=== PATIENT | female | born 1980 | race African-American/Black ===

== ENCOUNTER 2019-04-03 18:00 | Emergency (ER) | payer OTHER ==
[~2019-04-03] VITALS: Ht 172.7 cm; Wt 137.4 kg
[2019-04-03] MEDS ORDERED: PROAIR HFA8.5 GM INH (18:55)
[2019-04-03 19:40] VITALS: BP 133/76
[2019-04-03] MEDS ORDERED: ZPAK PO (19:53)
[2019-04-03] MEDS ORDERED: PROMETH-CODEIN 65 ML PO (19:53)
== END 2019-04-03 20:00 | disposition home or self-care (01) ==
LOC: ER 18:00
DX: J18.9 Pneumonia, unspecified organism (principal); F17.210 Nicotine dependence, cigarettes, uncomplicated

== ENCOUNTER 2019-05-17 22:29 | Emergency (ER) | payer OTHER ==
[~2019-05-17] VITALS: Ht 175.3 cm; Wt 131.5 kg
[~2019-05-17 22:29] MED LIST: PROAIR HFA8.5 GM INH; PROMETH-CODEIN 65 ML PO; ZPAK PO
[2019-05-17 23:03] VITALS: BP 162/87
[2019-05-18 00:05] LABS: AMP/METHAMP Negative (Negative); BARBITURATES Negative (Negative); BENZODIAZEPINES Negative (Negative); COCAINE Negative (Negative); METHADONE Negative (Negative); OPIATES Negative (Negative); PCP Negative (Negative)
[2019-05-18 00:39] LABS: HEMATOCRIT 32.3 % (37.0-47.0); HEMOGLOBIN 9.2 gm/dL (12.0-15.0); MCHC 28.5 g/dL (28.0-37.0); MCV 63.2 fL (80.0-100.0); PLATELET COUNT 469 thou/uL (150-400); RBC 5.12 mil/uL (4.20-5.00); RDW 21.5 % (10.5-14.5); WBC 7.7 thou/uL (4.0-11.0)
[2019-05-18 00:43] LABS: ANION GAP 6 mmol/L (7-16); BUN 10 mg/dL (7-18); CALCIUM 9.1 mg/dL (8.5-10.1); CHLORIDE 103 mmol/L (98-107); CO2 30 mmol/L (21-32); CREATININE 0.7 mg/dL (0.6-1.0); GLUCOSE 283 mg/dL (74-106); SODIUM 139 mmol/L (136-145)
[2019-05-18 00:53] LABS: ALBUMIN 3.2 g/dL (3.4-5.0); MAGNESIUM 1.5 mg/dL (1.8-2.4); SGOT 10 U/L (15-37); SGPT 20 U/L (30-65); TOTAL BILIRUBIN 0.1 mg/dL (<0.1-1.0); TROPONIN-I <0.06 ng/mL (<0.06)
[2019-05-18 01:57] LABS: ABSOLUTE NEUTROPHILS 4.1 thou/uL (1.4-8.2)
[2019-05-18 01:58] LABS: ANISOCYTOSIS 2+; MICROCYTES 3+; PLATELET ESTIMATE INCREASED; POLYCHROMASIA 1+
[2019-05-18 01:59] LABS: HYPOCHROMASIA 3+; POIKILOCYTOSIS 2+
[2019-05-18] MEDS ORDERED: PREDNISONE 20 M20 MG PO (03:13)
[2019-05-18] MEDS ORDERED: TRAMADOL 50 MG50 MG PO (03:13)
[2019-05-18] MEDS ORDERED: VENTOLIN HFA 1818 GM INH (03:13)
[2019-05-18 07:11] VITALS: BP 153/83
--- NOTE | 2019-05-18 08:40 | EKG ---
[address] [address] ELECTROCARDIOGRAM REPORT Name: EULA GROSS Room #: 170-8 ADM IN M.R.#: [id number] Admission: 05/18/19 Attend Phys: Nitin Mena MD Discharge: Date of : 82 Report #: [id number] THIS REPORT FOR: //name// [facility] ED Test Date: 2019-05-17 Test Time: 22:32:57 Pat Name: EULA GROSS Department: Room: 170 Gender: F Medical Fee Clerk: GELA : 1980 Requested By: Osmin Espinoza Order Number: [id number] MD: Robby Negro Measurements Intervals [place] Rate: 102 P: 51 CA: 162 QRS: -10 QRSD: 89 T: 65 QT: 343 QTc: 447 Interpretive Statements Sinus tachycardia Probable left atrial enlargement No previous ECG available for comparison Electronically Signed On 05-18-2019 8:40:22 HAND BANDER by Robby Negro [email or web address] <ELECTRONICALLY SIGNED> By: Robby Negro MD 05/18/19 0840 [id number] Robby Negro MD /SAE
--- NOTE | 2019-05-18 10:38 | EXE ---
[facility] [address] [address] [place] [address] STRESS ECHOCARDIOGRAM Name: EULA GROSS Room #: 170-8 [facility] IN ..#: [id number] Admission: 05/18/19 Attend Phys: Nitin Mena MD Discharge: Date of : 82 Report #: [id number] THIS REPORT FOR: //name// APPROVED REPORT Study performed: 05/18/2019 09:51:42 Exam: Stress Echocardiogram Indication: Chest pain Stress Nurse: Mercy Heck RN Room #: 14 Status: routine Ht: 5 ft 8 in Medical History Medical History: Diabetes Medications: No cardiac medications Allergies: No known drug allergies Procedure The patient underwent an Exercise Stress Test using the Chiki Protocol. Blood pressure, heart rate, and EKG were monitored. An Echocardiogram was performed by gyroscopic engineering technician in four stages in quad fashion. At peak stress, four selected images were obtained and placed side by side with resting images for comparison. Stress Test Details Stress Test: Exercise stress testing was performed using a Chiki protocol. HR Resting HR: 96 bpm Max Heart Rate (APMHR): 183 bpm Max HR Achieved: 146 bpm Target HR (85% APMHR): 155 bpm % of APMHR: 79 Recovery HR: 134 bpm HR response to stress: Normal HR response to stress BP Resting BP: 138/87 mmHg Max BP: 142/90 mmHg Recovery BP: 146/94 mmHg BP response to stress: Normal blood pressure response to stress. ECG [facility] [address] [place] [address] STRESS ECHOCARDIOGRAM Name: EULA GROSSTTE Room #: 170-8 ADM IN M.R.#: [id number] Admission: 05/18/19 Attend Phys: Nitin Mena MD Discharge: Date of : 82 Report #: [id number] Clinical Reason for Termination: Maximal effort Stress Symptoms: Dyspnea Exercise duration: 3 min 26 sec Highest Stage Achieved: Stage 2: 2.5 mph at 12% grade. Exercise capacity: 5.1 METs Overall Exercise Capacity for Age: Poor Stress ECG Conclusion 1. Subjectively negative for ischemia with only dyspnea being developed with exercise 2. Electrocardiographically negative for ischemia 3. Markedly reduced functional capacity Pre-Stress Echo The resting Echocardiogram showed normal left ventricular contractility with an estimated Ejection Fraction of about 60-65%. The resting echocardiogram demonstrated normal wall motion in all wall segments. Post-Stress Echo The stress Echocardiogram showed normal left ventricular contractility with an estimated Ejection Fraction of about >70%. Compared to rest, there were no stress-induced wall motion abnormalities. Conclusion Clinical Response: Non-ischemic Exercise Capacity: Below Average Stress ECG Response: Non-ischemic Stress Echo Images: Non-ischemic 1. Low risk for development of wall motion abnormalities suggestive of ischemic burden 2. Markedly reduced functional capacity echo correlation suggest Other Information Study Quality: Adequate <Conclusion> 1. Low risk for development of wall motion abnormalities suggestive [facility] [address] [place] [address] STRESS ECHOCARDIOGRAM Name: EULA GROSSTTE Room #: 170-8 ADM IN M.R.#: [id number] Admission: 05/18/19 Attend Phys: Nitin Mena MD Discharge: Date of : 82 Report #: [id number] of ischemic burden 2. Markedly reduced functional capacity echo correlation suggest <ELECTRONICALLY SIGNED> By: Alex Renee MD 05/18/19 1038 [id number] [id number] Alex Renee MD /INF
[2019-05-18 11:54] LABS: CHOLESTEROL 188 mg/dL (<200); HDL CHOLESTEROL 43 mg/dL (>40); LDL CHOLESTEROL 127 mg/dL (<100); TC:HDL 4.4 Ratio (Not establshd); TRIGLYCERIDE 91 mg/dL (<150); VLDL 18 mg/dL (<40)
[2019-05-18 12:01] LABS: SERUM ASSESSMENT Clear
[2019-05-18 12:16] LABS: % SATURATION 4 % (20-39); IRON 16 ug/dL (50-170); TIBC 387 ug/dL (250-450)
[2019-05-18 12:44] LABS: FOLIC ACID 9.2 ng/mL (8.6-58.9)
[2019-05-18] MEDS ORDERED: PROTONIX40 M1 PO ×2 (13:30→13:47)
[2019-05-18] MEDS ORDERED: WORK EXCUSE ×2 (13:31→13:47)
[2019-05-18 13:51] VITALS: BP 151/92
[2019-05-18 14:19] VITALS: BP 151/92
== END 2019-05-18 14:04 | disposition home or self-care (01) ==
LOC: ER 22:29 → EROBS 05-18 03:40 → ER 05-18 03:40
PROVIDERS: Emergency Medicine; Hospitalist; Nurse Practitioner
DX: R07.89 Other chest pain (principal); R06.00 Dyspnea, unspecified; E83.42 Hypomagnesemia; D50.9 Iron deficiency anemia, unspecified; E11.65 Type 2 diabetes mellitus with hyperglycemia; E66.01 Morbid (severe) obesity due to excess calories; F17.210 Nicotine dependence, cigarettes, uncomplicated; I10 Essential (primary) hypertension